=== PATIENT | female | born 1995 | race Caucasian/White ===

== ENCOUNTER 2018-03-12 14:27 | Emergency (ER) | payer OTHER ==
[~2018-03-12] VITALS: Ht 162.6 cm; Wt 58.2 kg
[~2018-03-12 14:27] MED LIST: NO HOME MEDICATIONS
[2018-03-12 14:30] VITALS: BP 112/69; TEMP 97.7
[2018-03-12 15:18] LABS: BASO % 0.4 % (0.0-2.0); EOS % 0.4 % (0-4.0); GRAN # 6.2 (1.4-6.5); GRAN % 72.3 % (42.2-75.2); HEMOGLOBIN 13.1 g/dl (12.5-16.0); LYMPH # 1.6 (1.2-3.4); LYMPH % 18.7 % (20.0-51.0); MEAN CELL VOLUME 94 fl (80.0-100.0); MEAN CORPUSCULAR HEMOGLOBIN 31 pg (27.0-31.0); MEAN CORPUSCULAR HGB CONC 34 g/dl (33.0-37.0); MEAN PLATELET VOLUME 10.6 fl (7.4-10.4); MONO # 0.7 (0.1-0.6); MONO % 7.8 % (1.7-9.3); PLATELET COUNT 229 K/mm3 (130-400); RED BLOOD COUNT 4.17 M/mm3 (4.10-5.30); REDCELL DISTRIBUTION WIDTH-CV 12.9 % (11.5-14.5)
[2018-03-12 15:31] LABS: ALBUMIN 4.5 gm/dL (3.5-5.0); BILIRUBIN,TOTAL 0.3 mg/dL (0.0-1.0); CALCIUM 9.4 mg/dL (8.4-10.2); CREATININE, serum 0.88 mg/dL (0.52-1.25); POTASSIUM 4.3 mmol/L (3.4-5.0); TOTAL PROTEIN 7.6 gm/dL (6.4-8.2)
[2018-03-12] MEDS ORDERED: PREDNISONE20 MG PO (16:07)
[2018-03-12] MEDS ORDERED: ZITHROMAX Z PA250 MG PO (16:07)
[2018-03-12 16:17] VITALS: PULSE 86
== END 2018-03-12 16:17 | disposition home or self-care (01) ==
LOC: COL.ER 14:27
PROVIDERS: Physician Assistant
DX: J45.909 Unspecified asthma, uncomplicated (principal); J20.9 Acute bronchitis, unspecified

== ENCOUNTER 2018-04-02 17:28 | Emergency (ER) | payer OTHER ==
[~2018-04-02] VITALS: Ht 162.6 cm; Wt 56.4 kg
[~2018-04-02 17:28] MED LIST changes: +PREDNISONE20 MG PO; +ZITHROMAX Z PA250 MG PO
[2018-04-02 17:32] VITALS: TEMP 98.4
[2018-04-02] MEDS ORDERED: REGLAN 10MG10 MG/TAB PO (19:22)
[2018-04-02 19:39] VITALS: BP 105/75; PULSE 88
== END 2018-04-02 19:41 | disposition home or self-care (01) ==
LOC: COL.ER 17:28
DX: G43.909 Migraine, unspecified, not intractable, without status migrainosus (principal)
CPT/HCPCS: J1200; J1885; J2765; J7030